=== PATIENT | male | born 1995 ===

== ENCOUNTER 2018-06-28 07:20 | Day surgery (SDC) | payer BC ==
[2018-06-19 18:45] VITALS: BMI 19.8
--- NOTE | 2018-06-28 06:15 | CP.PCM.PN ---
Subjective - Date & Time of Evaluation Date of Evaluation: 06/28/18 Time of Evaluation: 07:39 - Subjective Subjective: Podiatry [facility] note for Dr. Hedrick, 22 y/o male patient seen and evaluated at bedside in [facility] for removal of wart to the plantar right foot. Patient states the wart has been present for several months and failed conservative treatment. Patient NPO status confirmed, and patient denied any adverse reactions to anesthesia in the past. Patient denies any other pedal complaints or complaints of fever, nausea, vomiting, shortness of breath, chest pain PMHx: denied medications: none Allergies: NKDFA Objective - Constitutional Appears: Well, Non-toxic, No Acute Distress - Head Exam Head Exam: ATRAUMATIC, NORMOCEPHALIC - Extremities Exam Additional comments: VASC: DP and PT 2/4 bilaterally, CFT less than 3 seconds X 10, no edema, no erythema, TG normal NEURO: epicritic and protective sensations intact DERM: plantar wart noted to the right foot, painful on palpation, no bleeding noted, no signs of infection ORTHO: pain on palpation to the wart, pain with lateral squeeze, no other defor mities - Neurological Exam Neurological Exam: Alert, Awake, Oriented x3 - Psychiatric Exam Psychiatric exam: Normal Affect, Normal Mood Assessment and Plan - Assessment and Plan (Free Text) Assessment: 22 y/o male seen in [facility] for surgery to right foot, removal of plantar wart Plan: Pt was seen and examined in [facility] Pt NPO status was confirmed All pre-op testing and clearance in chart Pt has exhausted all conservative treatment at this time and is opting for surgical intervention Pt was explained procedure and post-operative course All pt's questions were answered to satisfaction No guarantees were made Pt understands all risks, benefits and complications of procedure Pt will follow-up with Dr. Hedrick within 1 week of surgery
--- NOTE | 2018-06-28 06:15 | CP.SDSHP ---
Same Day Surgery H & P - History Proposed Procedure: Removal of wart Pre-Op Diagnosis: Plantar wart to foot - Previous Medical/Surgical History Pain: 4.Moderate Pain - Allergies Allergies: Allergies No Known Allergies Allergy (Verified 06/19/18 18:45) - Physical Exam Mental Status: Alert & Oriented x3 Neuro: WNL - {Optional Preform as Required} Integument: WNL - Impression Pt. Evaluated Today:Candidate for Anesthesia & Procedure: Yes - Date & Time Date: 06/28/18 Time: 07:44 Short Stay Discharge - Short Stay Discharge Admitting Diagnosis/Reason for Visit: B07.0 Disposition: HOME/ ROUTINE Additional Instructions (Diet, Activity): -Patient in good/stable condition for discharge home -Pt to resume medications per medical reconciliation -Resume regular diet -Please keep dressing clean, dry, & intact to surgical site -Use plastic bag over bandage for showering -Wear post op shoe at all times when ambulating -Call clinic if you see signs of infection (redness, swelling, malodor) -Please make an appointment to see Dr. Hedrick in office/clinic within 1 week for post-op check Progress Note/Discharge Note with Instructions: - Patient evaluated bedside in recovery s/p wart removal - After surgical procedure patient in NAD - (+) Void, (+) Appetite - Capillary refill time <3s and NVS intact. - Patient denies complaints at this time. - Post operative instructions and plan of care explained to patient at length. - Patient. acknowledges verbal understanding. - Patient stable for DC per podiatric surgery
[~2018-06-28 07:20] MED LIST: Bupivacaine-Epi 0.5%-1:200,000 PF Inj IJ ONE; Lidocaine 1% Inj (20ml) IJ ONE; Sodium Chloride 0.9% 1,000 ML IV SCH; ceFAZolin 1 GM in Sodium Chloride 0.9% 100 ML IVPB ONE
[2018-06-28 07:51] VITALS: RESP 18
[2018-06-28] MEDS ORDERED: Lactated Ringer's 1,000 ML IV ONE ×2 (09:50→10:10)
[2018-06-28] MEDS ORDERED: Bupivacaine 0.5% Inj(30mL) ONE (09:52)
[2018-06-28] MEDS ORDERED: Lidocaine 1% Inj (20ml) ONE (09:52)
[2018-06-28] MEDS ORDERED: Midazolam 2 MG/2 ML VIAL ONE (10:15)
[2018-06-28] MEDS ORDERED: Propofol 10 mg/ml Inj (20 ML) ONE (10:15)
[2018-06-28] MEDS ORDERED: Oxycodone/Acetaminophen 5/325 mg Tab PO PRN ×2 (11:10)
--- NOTE | 2018-06-28 11:10 | PCM.SURG1 ---
Surgeon's Initial Post Op Note - Surgeon's Notes Surgeon: Dr Herrera Hedrick Property Site Manager: Jeanne Mansfield Type of Anesthesia: IV Sedation Anesthesia Administered By: Dr Maynard Pre-Operative Diagnosis: right foot plantar verruca Operative Findings: see dictation. materials- 3-0 prolene. injectibles: 20 cc of .5% marcaine plain and 1% lidocaine plain Post-Operative Diagnosis: same Operation Performed: right foot plantar verrucar removal Specimen/Specimens Removed: right foot plantar verruca Estimated Blood Loss: EBL {In ML}: 1 Blood Products Given: N/A Drains Used: No Drains Post-Op Condition: Good Date of Surgery/Procedure: 06/28/18 Time of Surgery/Procedure: 11:09
[2018-06-28] MEDS ORDERED: Lactated Ringer's 1,000 ML IV SCH (11:15)
[2018-06-28 13:22] VITALS: O2SAT 98
[2018-06-28 14:35] VITALS: BP 118/76; PULSE 56; TEMP 97.6
--- NOTE | 2018-07-01 08:36 | PCM.OP ---
Operative Report - Operative Report Date of Surgery/Procedure: 06/28/18 Time of Surgery/Procedure: 10:40 Surgeon: Dr. Herrera Hedrick Fire Production Operator: Sri Gómez, PGY1 Jeanne Frias PGY3 Anesthesia/Sedation: IV Sedation Pre-Operative Diagnosis: right foot plantar verruca Post-Operative Diagnosis: same Indication for Surgery: The patient is a 22 year-old male with the above mentioned diagnoses. The patient has exhausted all conservative care, Previous attempt to remove the lesion in office, and other conservative measures. The patient requests surgical intervention at this time. The patients signed the consent after careful explanation of all the risks, benefits, and complications of the proposed surgical procedure. No guarantees have been given or implied. Operative Findings: The patient was brought to the operating room and placed on the operating room table in the supine position. After IV sedation was achieved, the patient was prepped and draped in the usual sterile manner and the procedure then began. Then a total of 20 CC of .5% marcaine plain and 1% lidocaine plain was injected to the posterior tibial nerve and v-block type fashion to the plantar medial lesion. Procedure/Operation Description: Attention was directed to the plantar medial aspect of the right heel where there is a verrucal lesion measuring about 1 cm in diameter. At this point, a #15 blade was use to make a semi-elliptical incision surrounding the lesion. Using a one-tooth pickup the lesion was lifted and deeper incision was made using the blade to fully excise the lesion from the skin. Once the lesion was completely excised, the surgical wound bed for was cauterized. The site was then reapproximated using 3-0 prolene in a horizontal suture type fashion. The area was then dried and nonadherent, and dry sterile dressing was applied. Estimated Blood Loss: 1 Complications: none Discharge & Condition: The patient tolerated the anesthesia and procedure and proceeded to PACU with vital signs stable and neurovascular status intact to the right lower extremity. This patient will partial weight bear in surgical shoe to the toes with the use of crutches. Patient to take pain medications as prescribed. Pt to follow up with Dr. Hedrick at her office.
== END 2018-06-28 15:20 | disposition home or self-care (01) ==
LOC: H.OPSURG 07:20
PROVIDERS: ATTEND Podiatrist Foot & Ankle Surgery
DX: B07.0 Plantar wart (principal)
CPT/HCPCS: 11426; 12042; 88305; 97161; G8978; G8979; G8980; J0690; J2001; J2250; J2704; J3010; J7030; J7120